=== PATIENT | female | born 1950 | race Caucasian/White ===

== ENCOUNTER 2016-11-02 12:52 | Inpatient (IN) | payer MEDICARE, OTHER ==
[~2016-11-02] VITALS: Ht 167.6 cm; Wt 54.6 kg
--- NOTE | ~2016-11-02 | ECH ---
Transthoracic Echocardiography Report (TTE) Demographics Patient Name LUIS FISHER Date of Study 11/02/2016 Patient Number [id number] Visit Number [id number] Date of 1950 Room Number Accession Number [id number] Gender Female Age 65 year(s) Referring [facility] Office Coordinator Chelsea Brown [facility] Physician MD Josefina Neal MD Physician Interpreting [facility] R Beater Room Helper Physician MD Supervising Ordering Physician Josefina Neal MD, MD/[facility] Nurse Stress Software Specialist Conclusions Summary Technically adequate exam. The estimated left ventricular ejection fraction is 60%. Mild concentric left ventricular hypertrophy. There is severe/critical aortic stenosis by the Continuity Equation. The peak velocity is 6.1 m/s, the mean gradient is 86 mmHg, and the valve area based on the continuity equation is 0.4 cm2, stroke volume index is 38 ml/m2. Peak velocity obtained in apical view. The aortic valve was not well visualized. There is trivial aortic regurgitation by color Doppler. Mild tricuspid regurgitation by color Doppler. There is moderate pulmonary hypertension. The pulmonary pressure (RVSP) is 54 mmHg. The ascending aorta appears mildly dilated. The maximum diameter measures 3.4 cm. Procedure Type of Study TTE procedure:Echo Complete SF. Procedure Date Date: 11/02/2016 Start: 04:41 PM Technical Quality: Adequate visualization Indications:Atrial Fibrillation w/ RVR and Chest pain. Appropriate Use Criteria: 9 Height: 66 inches Weight: 120 pounds BSA: 1.61 m Rhythm: NSR HR: 68 bpm BP: 100/57 mmHg M-Mode/2D Measurements LV Diastolic Dimension: 4.36 cm LV Systolic Dimension: 3.31 cm LV Septum Diastolic: 1.21 cm LV PW Diastolic: 1.1 cm AO Root Dimension: 3.19 cm Cardiac Output: 4.13 l/min LA Dimension: 3.08 cm Cardiac Index: 2.57 l/min*m RV Diastolic Dimension: 2.9 cm LA volume index: 34 ml/m LVOT: 1.91 cm LVOT VTI: 21.19 cm RV Base: 2.7 cm LV Stroke volume: 60.68 ml RV Mid: 1.7 cm LV Stroke volume index: 37.69 ml/m TAPSE: 2.5 cm TDI-S': 12 cm/s Doppler Measurements AV Peak Velocity: 6.1 m/s MV Peak E-Wave: 1.7 m/s AV Peak Gradient: 148.84 mmHg MV Peak A-Wave: 0.92 m/s AV Mean Gradient: 86.19 mmHg MV E/A Ratio: 1.85 LVOT Peak Velocity: 0.83 m/s MV P1/2t: 51.7 msec AV Area (Continuity):0.43 cm AV P1/2t: 288.4 msec TR Velocity:3.32 m/s MV Deceleration Time: 182.3 msec TR Gradient:44.09 mmHg MV Area (PHT): 4.26 cm Estimated RAP:10 mmHg PV Peak Velocity: 0.85 m/s Estimated RVSP: 54 mmHg PV Peak Gradient: 2.9 mmHg E' Septal Velocity: 0.07 m/s Estimated PASP: 54.09 mmHg E' Lateral Velocity: 0.06 m/s A' Septal Velocity: 0.06 m/s A' Lateral Velocity: 0.05 m/s RA Area: 10.33 cm Findings Left Ventricle The left ventricle is normal in size . Mild concentric left ventricular hypertrophy. Diastolic assessment reveals normal relaxation. Right Ventricle Normal right ventricle structure and function. Left Atrium Normal left atrial size. Right Atrium Normal right atrial size. Mitral Valve Moderate mitral annular calcification. Mild mitral regurgitation by color Doppler. Aortic Valve The aortic valve was not well imaged. There is severe aortic stenosis by the Continuity Equation. The peak velocity is 6.1 m/s, the mean gradient is 86 mmHg, and the valve area based on the continuity equation is 0.4 cm2, stroke volume index is 38 ml/m2. Peak velocity obtained in apical view. There is mild to moderate aortic regurgitation by color Doppler. Tricuspid Valve Normal tricuspid valve structure and function. Mild tricuspid regurgitation by color Doppler. There is moderate pulmonary hypertension. The pulmonary pressure (RVSP) is 54 mmHg. Pulmonic Valve The pulmonic valve is not well visualized. Pericardial Effusion No evidence of pericardial effusion. Miscellaneous The ascending aorta appears mildly dilated. The maximum diameter measures 3.4 cm. Pleural Effusion No evidence of pleural effusion. Contractility Score LV regional wall motion:(0-Non visualized 1-Normal 2-Hypokinesis 3-Akinesis 4-Dyskinesis 5-Aneurysm) Signature
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
--- NOTE | 2016-11-04 12:16 | DS ---
ADMIT: 11/02/2016 RM/LOC: 403 [facility] MR#: [id number] [address] [place], [place] [address] LUIS FISHER [address] [place] [address] Discharge Summary SEX: F AGE: 65 : 1950 ADMISSION DATE: 11/02/2016 DISCHARGE DATE: 11/03/2016 ATTENDING AT TIME OF DISCHARGE: Yasir Rocha MD CONSULTATIONS: 1. Cardiology. 2. General Surgery. FINAL DIAGNOSES: 1. A fib (atrial fibrillation) with RVR (rapid ventricular response), now normal sinus rhythm. 2. Bds-UV-eecotov elevated myocardial infarction. 3. Critical aortic stenosis. 4. Acute blood loss anemia. 5. Presumed gastrointestinal blood loss. PROCEDURES: None. REASON FOR ADMISSION: Please see H and P; however, Luis is a 65-year-old female who was severely short of breath, transferred to the ER noted to have atrial fibrillation with RVR. HOSPITAL COURSE: She was admitted the service of [facility] under the care of myself, Yasir Rocha MD. She did convert to normal sinus rhythm while in the ER. Upon identification of her critical aortic stenosis, there has been further contact with the [facility]. They will evaluate the patient in [place] to consider a balloon valvuloplasty acutely. She does have a trending of her troponins down today, it is at 5. She did receive Lovenox last night. Hemoglobin is 10.8 today. Yesterday it was 12. In September it was 16 in my office. She states she thinks she has dark-colored stools. However, it is really unclear if she actually has a gastrointestinal bleed at this time. There is certainly no shade bleeding from her rectum or otherwise from other sources such as hemoptysis, hematochezia or anything of that nature. However, she is hemodynamically stable at this time. She will transferred to [facility]. I did speak with Cardiology. They do have capability to intervene upon the patient if she does need further endoscopy or evaluation there in [place], and they are aware of these concerns as well. DISPOSITION: [facility]. DISCHARGE CONDITION: Stable. ADMIT: 11/02/2016 RM/LOC: 403 [facility] MR#: [id number] [address] [address] LUIS FISHER [address] [place] [address] Discharge Summary SEX: F AGE: 65 : 1950 DISCHARGE MEDICATIONS: See medication reconciliation, reviewed and accurate. DISCHARGE INSTRUCTIONS: Discharged to the [facility] to be evaluated for a balloon valvuloplasty and further aortic valve interventions. They will monitor her other laboratories including hemoglobin and continue care for her COPD. I discussed this plan with Luis. She expressed understanding, was in agreement, and had no further questions. Family is also at the bedside. Thirty minutes spent on discharge activities with this patient. Yasir Rocha MD/ mela JOB #: [id number] CC: Yasir Rocha MD, Attending Physician Yasir Rocha MD, Family Physician
--- NOTE | 2016-11-09 17:29 | CO ---
ADMIT: 11/02/2016 RM/LOC: 403 [facility] MR#: [id number] [address] [place], [place] [address] LUIS FISHER [address] [place] [address] Consultation SEX: F AGE: 65 : 1950 DATE OF CONSULTATION: 11/02/2016 ATTENDING PHYSICIAN: Yasir Rocha CONSULTING PHYSICIAN: Jose Rose MD REASON FOR CONSULTATION: Atrial fibrillation with rapid ventricular response. HISTORY OF PRESENT ILLNESS: The patient is a pleasant 65-year-old female with no known history of coronary artery disease. She is here with a 2- months history of shortness of breath with exertion and with rest. Today, her legs became weak, and she had pain in her left arm and therefore, she was brought into the emergency room by her family. She was found to be in atrial fibrillation with rapid ventricular response. She does not have any heart history of arrhythmias. She denies any significant lower extremity edema, orthopnea, PND, or syncope. She does not have any palpitations. She states she does have some chest heaviness with her shortness of breath and COPD. She had two episodes of diaphoresis with presyncope upon exertion within the last couple of weeks. PAST MEDICAL HISTORY: COPD; hypertension; hyperlipidemia; tobacco abuse, ongoing; GERD. PAST SURGICAL HISTORY: Status post cholecystectomy. REVIEW OF SYSTEMS: GENERAL: Denies fatigue, fever, chills, sweats, or rash. She has had weight loss, 10-15 pounds in approximately 1 year. EYES: Denies double vision, blurred vision, cataracts, or glaucoma. She wears corrective lenses. ENT: Denies hearing loss or problems with nose, mouth or throat. PULMONARY: Denies sputum production, asthma, emphysema or bronchitis. Denies snoring loudly, wakefulness at night, or fatigue upon awakening. She has a cough which is nonproductive. She does have COPD, does not wear any oxygen, does not gave a diagnosis of sleep apnea. GASTROINTESTINAL: Denies heartburn or difficulty swallowing. No change in bowel habits. Denies dark or bloody stools. No history of ulcers, hiatal hernia, or gallbladder or liver disease. She is status post cholecystectomy and has GERD. GENITOURINARY: Denies dysuria, hematuria, nocturia, urinary tract infection, or kidney stones. Denies history of renal insufficiency or failure. MUSCULOSKELETAL: Denies history of arthritis or gout. Denies muscle or joint pains. ENDOCRINE: Denies history of thyroid dysfunction or diabetes. HEMATOLOGIC: Denies history of anemia, easy bruising, or cancer. NEUROLOGIC: Denies chronic headaches, dizziness, syncope, stroke, seizures or numbness or tingling. PSYCHIATRIC: Denies history of mental illness or feelings of depression. SOCIAL HISTORY: She is . She has 2 children. 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 She does not follow special diet at home. She drinks 4-5 beers a day. 4-5 times a week. She smokes a pack a day. FAMILY HISTORY: Positive for coronary artery disease. Dad of a massive myocardial infarction, sudden cardiac in his 70s. Mom had congestive heart failure which was not her cause of . She also has a brother who had CABG at age 64. MEDICATIONS: Include: 1. Amlodipine. 2. Crestor. PHYSICAL EXAMINATION: Per Dr. Rose: VITAL SIGNS: Heart rate anywhere from the 60s to 170s, O2 saturation of 95%, blood pressure is 118/60, O2 saturation without any oxygen is in the 90s. GENERAL: Thin alert. SKIN: [place], warm and dry. EYES: Sclerae clear. No xanthelasmas. ENT: Oral mucosa is pink and moist. No jugular venous distention or carotid bruits. CHEST: Respirations are even and unlabored. Lungs poor air movement. Positive wheezes. HEART: Grade 3 systolic murmur. ABDOMEN: Soft and nontender. MUSCULOSKELETAL: Gait is normal. EXTREMITIES: Peripheral pulses palpable. No clubbing, cyanosis or edema. PSYCHIATRIC: Alert and oriented. Mood and affect are appropriate. DIAGNOSTICS: White blood count of 10.3 with red blood count 3.65, hemoglobin 12.7, hematocrit of 35.6 with platelet count of 336. Sodium of 126, potassium 3.6, chloride 91, carbon dioxide 23, BUN of 6, glucose of 110, creatinine 0.6, calcium 8.6, magnesium of 1.7. Ethanol level of 15. Troponin of 0.167. TSH of 1.290. ASSESSMENT: 1. Newly-diagnosed atrial fibrillation. 2. Chronic obstructive pulmonary disease with exacerbation. 3. Alcohol abuse. 4. Tobacco abuse. 5. Anemia. 6. Mildly-elevated troponin. PLAN: Per Dr. Rose, she has newly-diagnosed paroxysmal atrial fibrillation. She converted while in the ER after being put on a Cardizem drip and given IV digoxin. She has multiple risk factors for atrial fibrillation. I would like her to have an echocardiogram to assess her left ventricular function and to assess for any valvular abnormalities. Her TSH has already ADMIT: 11/02/2016 RM/LOC: 403 [facility] MR#: [id number] [facility] [address] LUIS FISHER [address] [place] [address] Consultation SEX: F AGE: 65 : 1950 been checked and is okay. I would recommend starting low-dose Cardizem. If she has ongoing episodes, we will consider an antiarrhythmic. I would favor anticoagulation if okay with her primary. Right now, there is suspicion for a GI bleed as hemoglobin has dropped from 16 in the office down to 12 upon visit today and she does states she has had some dark stools to some of the nurses. If there is no evidence of bleeding, then we will proceed with anticoagulation. Her increased troponin is nonspecific. We will continue to trend this out. We will continue to monitor symptoms and diagnostics. Amend our plan accordingly. Thank you for allowing us to participate in the care of this patient. EDIT: 11/05/2016 1034 [address] EMILY Murray / Jose Rose MD / nasir JOB #: [id number] CC: Yasir Rocha, Attending Physician Yasir Rocha, Family Physician
--- NOTE | 2016-11-19 08:53 | CO ---
ADMIT: 11/02/2016 RM/LOC: 403 [facility] MR#: [id number] [address] [place], [place] [address] LUIS FISHER [address] [place] [address] Consultation SEX: F AGE: 65 : 1950 DATE OF CONSULTATION: 11/03/2016 ATTENDING PHYSICIAN: Yasir Rocha CONSULTING PHYSICIAN: Merlin Hunt MD HISTORY OF PRESENT ILLNESS: The patient is a 65-year-old female, who is admitted to the emergency room yesterday due to increase issues over last several months of shortness of breath with exertion and at rest. She has gotten weaker, legs have become weak, she has had pain in her left arm. She admits to a poor appetite, and she does drink alcohol heavily per report. Denies nausea or vomiting. Denies any abdominal pain. Denies melena or hematochezia. No bowel function changes. Although, her workup revealed some anemia and more significantly atrial fibrillation with a rapid ventricular response. She was admitted for rate control. Cardiology was consulted. She ended up with an echocardiogram, which revealed severe aortic stenosis. After my visiting with her this morning, I visited with Dr. Irizarry, who said she is being transferred due to the severity of her severe aortic stenosis. PAST MEDICAL HISTORY: Includes: 1. Hypertension. 2. Hyperlipidemia. 3. COPD. 4. Alcohol and tobacco abuse, now has a severe aortic stenosis. MEDICATIONS: Include: 1. Crestor. 2. Amlodipine. ALLERGIES: SHE HAS NO ALLERGIES. FAMILY HISTORY: Family history of substance abuse. SOCIAL HISTORY: She is a heavy drinker heavy smoker. REVIEW OF SYSTEMS: Denies headaches, and she has had the shortness of breath, fatigue, decreased appetite. She did state she had a colonoscopy a couple years ago that was unremarkable. Denies any melena or dysphagia. No neurologic or psychiatric issues. PHYSICAL EXAMINATION: GENERAL: She is afebrile. ADMIT: 11/02/2016 RM/LOC: 403 [facility] MR#: [id number] [address] [address] LUIS FISHER [address] [place] [address] Consultation SEX: F AGE: 65 : 1950 VITAL SIGNS: Stable. HEART: Has a murmur. Heart is regular. LUNGS: Decreased breath sounds bilaterally. ABDOMEN: Soft, nondistended, and nontender. ASSESSMENT AND PLAN: The patient is a 65-year-old with mild anemia of unknown origin with no clinical evidence of gastrointestinal blood loss, who now is found to have a severe critical aortic stenosis. PLAN: At this point in time, it is to hold off on any type of endoscopic workup until she is going to be transferred to have her critical aortic stenosis likely handled surgically. Merlin Hunt MD/ nasir JOB #: [id number] CC: Yasir Rocha, Attending Physician Yasir Rocha, Family Physician
[2016-12-13] MEDS ORDERED: PROAIR RESPICL90 MCG IH (10:11)
[2016-12-13] MEDS ORDERED: ASA CHILDREN'S81 MG PO (10:11)
[2016-12-13] MEDS ORDERED: ADVAIR DIS1 PUFF/DO1 IH (10:12)
[2016-12-13] MEDS ORDERED: PLAVIX75 MG PO (10:12)
[2016-12-13] MEDS ORDERED: PROTONIX40 MG PO (10:13)
[2016-12-13] MEDS ORDERED: VIBRAMYCIN-DPS100 M2 PO (10:13)
[2016-12-13] MEDS ORDERED: CRESTOR10 MG PO (10:13)
[2016-12-13] MEDS ORDERED: LOPRESSOR DPS12.5 MG PO (10:13)
[2016-12-13] MEDS ORDERED: LASIX DPS40 MG PO (10:14)
[2016-12-13] MEDS ORDERED: CARAFATE DPS1 GM PO (10:14)
[2016-12-13] MEDS ORDERED: SPIRIVA18 MCG IH (10:14)
[2016-12-13] MEDS ORDERED: TYLENOL DPS325 MG PO (10:14)
[2016-12-13] MEDS ORDERED: FEOSOL-DPS325 MG PO (10:14)
[2016-12-13] MEDS ORDERED: DELTASONE DPS1 MG PO (10:15)
--- NOTE | 2016-12-15 21:36 | ER ---
ADMIT: 11/02/2016 RM/LOC: 403 [facility] MR#: [id number] [address] [place], [place] [address] LUIS FISHER [address] [place] [address] Emergency Room Report SEX: F AGE: 65 : 1950 DATE: 11/02/2016 HISTORY OF PRESENT ILLNESS: A 66-year-old female comes to the Emergency Department with complaints of chest pain and discomfort. She awoke with shortness of breath and these complaints. It is moderate in nature. Also was accompanied with palpitations, there is weakness, and shortness of breath associated with it. She has not had symptoms like this before. REVIEW OF SYSTEMS: Essentially negative. PAST MEDICAL HISTORY: Significant for hypertension, irregular heartbeat, as she does smoke and drink alcohol heavily. PHYSICAL EXAM: GENERAL: A 66-year-old female, in no acute distress. LUNGS: Clear. CARDIOVASCULAR: Irregular rate, irregular rhythm. ABDOMEN: Soft, nontender, positive bowel sounds. EXTREMITIES: Without clubbing, cyanosis, or edema. 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 ASSESSMENT AND PLAN: Cardiac workup was initiated. Chest x-ray showed no acute findings. Initial EKG was significant for atrial fibrillation with rapid ventricular response. Her initial cardiac markers revealed an MB of 18, total CK 177. Cardiac index; relative index of 10.2, initial troponin was 0.167. The patient was admitted with a chest pain, atrial fibrillation, and RVR. Stanford Tang MD/ nasir JOB #: [id number] CC: Yasir Rocha MD, Attending Physician Yasir Rocha MD, Family Physician
== END 2016-11-03 12:50 | disposition short-term general hospital (02) | DRG 281 ==
LOC: ER 12:52 → 4PCU 14:53 → ER 14:53 → 4PCU 11-03 12:50
PROVIDERS: ADMIT Internal Medicine
PROC: HZ2ZZZZ Detoxification Services for Substance Abuse Treatment (ICD-10-PCS; principal; 2016-11-02)
DX: I21.4 Non-ST elevation (NSTEMI) myocardial infarction (principal); I48.0 Paroxysmal atrial fibrillation; I35.0 Nonrheumatic aortic (valve) stenosis; D62 Acute posthemorrhagic anemia; E87.1 Hypo-osmolality and hyponatremia; K92.2 Gastrointestinal hemorrhage, unspecified; J44.1 Chronic obstructive pulmonary disease with (acute) exacerbation; K21.9 Gastro-esophageal reflux disease without esophagitis; F10.10 Alcohol abuse, uncomplicated; I10 Essential (primary) hypertension; E78.5 Hyperlipidemia, unspecified; E87.6 Hypokalemia; E83.42 Hypomagnesemia; F17.210 Nicotine dependence, cigarettes, uncomplicated; Z66 Do not resuscitate

== ENCOUNTER 2016-12-08 19:04 | Inpatient (IN) | payer MEDICARE ==
[~2016-12-08] VITALS: Ht 167.6 cm; Wt 53.3 kg
--- NOTE | 2016-12-09 19:03 | ER ---
ADMIT: 12/08/2016 RM/LOC: 316 [facility] MR#: [id number] [address] [place], [place] [address] LUIS FISHER [address] [place] [address] Emergency Room Report SEX: F AGE: 66 : 1950 DATE: 12/08/2016 CHIEF COMPLAINT: Shortness of breath. HISTORY OF PRESENT ILLNESS: The patient is a 66-year-old female with COPD, chronic AFib; coronary artery disease; congenital bicuspid aortic valve, recent balloon valvuloplasty at [facility], discharged on November 24, 2016. States she is increasingly short of breath, lightheaded. Denies any chest pain, fevers, chills, or productive cough. Does admit to black stools lately. Smoking up to 5 cigarettes a day now that she feels so good since she had her balloon valvuloplasty. PAST MEDICAL HISTORY: ALLERGIES: NONE. MEDICATIONS: Please see nurse's MAR. ILLNESSES: Coronary artery disease, chronic AFib, CHF, bicuspid aortic valve, recent valvuloplasty, hypertension, COPD, hyperlipidemia, GERD, anemia, previous GI bleed, peripheral vascular disease, carotid occlusive disease of 60% to 79% of right. OPERATIONS: Cholecystectomy, pending aortic valve replacement, and PCI x2 recently. SOCIAL HISTORY: Smokes less than a quarter pack per day. No illicit drugs. Occasional alcoholic beverage, beer today. FAMILY HISTORY: Negative per chart review. REVIEW OF SYSTEMS: A 12-point review of systems negative for all other systems, illnesses, or operations except as outlined above. PHYSICAL EXAMINATION: VITAL SIGNS: Temp 97, pulse 99, respirations 18, BP 122/57, and SaO2 of 97% on room air. GENERAL: Anxious, pale, non-diaphoretic without jaundice or icterus. HEENT: Normocephalic. No evidence of epistaxis, rhinorrhea, or otorrhea. NECK: Supple without lymphadenopathy or thyromegaly. CHEST: Breath sounds are equal and diminished with faint expiratory forced wheeze. HEART: Regular rate, occasionally tachycardic without murmur, gallop, or edema. ABDOMEN: Soft, nontender, nondistended without mass or megaly. Bowel sounds hypoactive. RECTAL: Sphincter intact. Hematest positive for black stool. EXTREMITIES: No evidence of Homans sign, synovitis, or dermatitis. ABIs greater than 1. NEURO: EOMI, PERRLA. No evidence of drift, dysarthria, or ataxia. Gait not ADMIT: 12/08/2016 RM/LOC: 316 [facility] MR#: [id number] [address] [address] [place] [address] Emergency Room Report SEX: F AGE: 66 : 1950 assessed. MENTAL STATUS: Alert, oriented, and anxious without delusions, hallucinations, or abnormal thought content. MEDICAL DECISION MAKING: EKG shows sinus rhythm, rate of 97 with repolarization changes diffusely. No significant change from 11/03/2016. Chest x-ray shows hyperinflation. WBC 11.1 and hemoglobin 6.6 down from 10.8 on November 03. CRP less than 0.29. Lactic 1.9. Glucose 129 and sodium 123. Troponin 0.197. D-dimer is 0.58. BNP 4503. Magnesium 1.9. 2 blood cultures pending. The patient was given Zofran, Protonix bolus and drip at 8 mg/hour, 2 DuoNebs, Solu-Medrol 125 mg IV push, magnesium 2 g IV piggyback with improvement in shortness of breath. The patient was transfused with 1 unit of packed cells in the emergency department. Discussed findings and disposition with Dr. Godoy, who agreed to admit to ICU and requested ICU to call for orders. Notified Dr. Hunt of GI bleed in-house. Due to the patient's presentation, findings, and intervention, 30 minutes of critical care is warranted. DIAGNOSES: 1. Gastrointestinal bleed, associated transient hypotension. 2. Chronic obstructive pulmonary disease. 3. Coronary artery disease, status post recent PCI stent x2. 4. Congenital aortic valve, recent aortic valvuloplasty. RECOMMENDATION: Admit inpatient ICU for Dr. Rocha. Admission discharge condition is stable. The patient is a DNR. Idris Kuo MD/ nasir JOB #: [id number] CC: Yasir Rocha MD, Attending Physician Yasir Rocha MD, Family Physician MD Merlin Villegas MD
--- NOTE | 2016-12-12 14:08 | CO ---
ADMIT: 12/08/2016 RM/LOC: 316 [facility] MR#: [id number] [address] [place], [place] [address] LU[address]ER [address] [place] [address] Consultation SEX: F AGE: 66 : 1950 DATE OF CONSULTATION: 12/09/2016 ATTENDING PHYSICIAN: Yasir Rocha CONSULTING PHYSICIAN: Roberth Busyb MD CHIEF COMPLAINT: GI bleed. HISTORY OF THE PRESENT ILLNESS: The patient is a 66-year-old female, who was recently treated by us in October when she was discovered to be in atrial fibrillation with rapid ventricular response. Since that time, she is noted to have aortic stenosis and coronary artery disease. As part of the treatment for her aortic stenosis, she underwent a balloon aortic valvuloplasty in October which lowered her mean gradients. She then underwent a PCI to the LAD with a stent. Since that time, she has been on anti-platelet agents and anticoagulants. She noticed in the last couple of days that she felt more short of breath and fatigued. Because of that, she had presented to the emergency room and was noted to have a hemoglobin of 6.6. We are now seeing her for further evaluation. She is currently off her anticoagulants and anti- platelet agents. In speaking with her today, she states that she does not feel quite short of breath. She has no new chest pain or chest tightness. She has her baseline shortness of breath but nothing that has worsened. She had no other complaints. PAST MEDICAL HISTORY: Significant for: 1. Atrial fibrillation. 2. Balloon aortic valvuloplasty. 3. Stenting of the LAD. 4. COPD. 5. Hypertension. 6. Hyperlipidemia. 7. History of tobacco abuse. 8. History of alcohol use. 9. Reflux. 10.History of cholecystectomy. ALLERGIES: NONE. CURRENT HOME MEDICATIONS: 1. Albuterol inhaler every 6 hours as needed. 2. Clopidogrel 75 mg daily. 3. Aspirin 81 mg daily. 4. Advair Diskus 1 puff twice daily. 5. Metoprolol tartrate 12.5 mg b.i.d. 6. Multivitamin daily. 7. Pantoprazole 40 mg daily. 8. Rosuvastatin 10 mg daily. 9. Spiriva inhalation daily. ADMIT: 12/08/2016 RM/LOC: 316 [facility] MR#: [id number] [facility] [address] [address] [place] [address] Consultation SEX: F AGE: 66 : 1950 FAMILY HISTORY: Significant for father who had a myocardial infarction and sudden cardiac . Her mother had heart failure and a brother who had bypass surgery. SOCIAL HISTORY: The patient has a history of alcohol use and smoking. REVIEW OF SYSTEMS: GENERAL: Denies fever, chills, sweats, rash, or weight loss. She has had recent fatigue. EYES: Denies double vision, blurred vision, cataracts, or glaucoma. ENT: Denies hearing loss or problems with nose, mouth or throat. PULMONARY: Denies cough, sputum production, asthma, emphysema or bronchitis. Denies snoring loudly, wakefulness at night, or fatigue upon awakening. GASTROINTESTINAL: Denies heartburn or difficulty swallowing. No change in bowel habits. Denies dark or bloody stools. No history of ulcers, hiatal hernia, or gallbladder or liver disease. GENITOURINARY: Denies dysuria, hematuria, nocturia, urinary tract infection, or kidney stones. Denies history of renal insufficiency or failure. MUSCULOSKELETAL: Denies history of arthritis or gout. Denies muscle or joint pains. ENDOCRINE: Denies history of thyroid dysfunction or diabetes. HEMATOLOGIC: Denies history of anemia, easy bruising, or cancer. NEUROLOGIC: Denies chronic headaches, dizziness, syncope, stroke, seizures or numbness or tingling. PSYCHIATRIC: Denies history of mental illness or feelings of depression. She does have some shortness of breath. She has some occasional chest pain. she has had no other complaints. PHYSICAL EXAMINATION: VITAL SIGNS: Blood pressure is 115/57, heart rate 93, respirations 20, temperature 96.9 degrees Fahrenheit. SKIN: Dennis, warm and dry. EYES: Sclerae clear. No xanthelasmas. ENT: Oral mucosa is pink and moist. No jugular venous distention or carotid bruits. CHEST: Lungs have diminished breath sounds throughout. HEART: Regular rate and rhythm. Normal S1, S2. No rubs or gallops. A 3/6 systolic ejection murmur. ABDOMEN: Soft and nontender. MUSCULOSKELETAL: Gait is normal. EXTREMITIES: Peripheral pulses palpable. No clubbing, cyanosis or edema. PSYCHIATRIC: Alert and oriented. Mood and affect are appropriate. ASSESSMENT: 1. Gastrointestinal bleed. 2. Aortic stenosis. 3. Coronary artery disease. 4. Atrial fibrillation. 5. Hypertension. 6. Hyperlipidemia. ADMIT: 12/08/2016 RM/LOC: 316 [facility] MR#: [id number] [address] [place] [id number] [place] [address] Consultation SEX: F AGE: 66 : 1950 7. History of smoking. 8. History of alcohol use. PLAN: Currently the patient is in sinus rhythm. She does appear to have a GI bleeding. For this reason, we will need to keep her off anti-platelet agents and anticoagulants until a diagnosis can be made. Hopefully something can be treated so that we can get her back on those agents as she does have a fairly recent stent placement approximately 1 month ago. She is also in need of long- term treatment for her aortic valve with likely a TAVR. At the moment, her blood pressure is stable, we will continue with the risk factor treatment. I believe that her elevated troponin is probably a demand ischemia from her anemia rather than supply ischemia or new myocardial infarction. Roberth Busby MD/ nasir JOB #: [id number] CC: Yasir Rocha, Attending Physician Yasir Rocha, Family Physician
[2016-12-13] MEDS ORDERED: PROAIR RESPICL90 MCG IH (10:11)
[2016-12-13] MEDS ORDERED: ASA CHILDREN'S81 MG PO (10:11)
[2016-12-13] MEDS ORDERED: ADVAIR DIS1 PUFF/DO1 IH (10:12)
[2016-12-13] MEDS ORDERED: PLAVIX75 MG PO (10:12)
[2016-12-13] MEDS ORDERED: PROTONIX40 MG PO (10:13)
[2016-12-13] MEDS ORDERED: LOPRESSOR DPS12.5 MG PO (10:13)
[2016-12-13] MEDS ORDERED: VIBRAMYCIN-DPS100 M2 PO (10:13)
[2016-12-13] MEDS ORDERED: CRESTOR10 MG PO (10:13)
[2016-12-13] MEDS ORDERED: TYLENOL DPS325 MG PO (10:14)
[2016-12-13] MEDS ORDERED: FEOSOL-DPS325 MG PO (10:14)
[2016-12-13] MEDS ORDERED: LASIX DPS40 MG PO (10:14)
[2016-12-13] MEDS ORDERED: CARAFATE DPS1 GM PO (10:14)
[2016-12-13] MEDS ORDERED: SPIRIVA18 MCG IH (10:14)
[2016-12-13] MEDS ORDERED: DELTASONE DPS1 MG PO (10:15)
--- NOTE | 2016-12-14 17:36 | HP ---
ADMIT: 12/08/2016 RM/LOC: 316 [facility] MR#: [id number] [address] [place], [place] [address] LUIS OSORIO [address] [place] [address] History and Physical SEX: F AGE: 66 : 1950 DATE OF SERVICE: 12/08/2016 CHIEF COMPLAINT: Shortness of breath. HISTORY OF PRESENT ILLNESS: Ms. Osorio is a very pleasant 66-year-old female with past medical history significant for COPD, recent valvuloplasty about 3 weeks ago for bicuspid aortic valve and severe aortic stenosis, CAD with recent LAD stent,possible GI bleed, possible history of paroxysmal atrial fibrillation, presents to the emergency room today with 2 days of shortness of breath. The patient is s/p valvuloplasty and stent about 3 weeks ago, which she had completed in [place]. The patient discharged home, apparently was rehabilitating very well, and in about 2 days ago began feeling increasing shortness of breath and weakness. The patient denied any palpitations or chest pain. The patient did experience some tingling in her legs bilaterally, started in her feet and radiated up and seemed to have restless legs especially in the evening. The patient decided to come to the emergency room today to be evaluated. The patient denies any recent chest pain. The patient did have some recent exertional intolerance, now only able to walk about half a block before stopping for shortness of breath. The patient denies any bright red blood per rectum. The patient is unable to tell me if she has had any black or tarry stools as she does not typically pay lot of attention. Denies any blood in her urine. No abdominal pain. No nausea or vomiting. Otherwise, no changes in bowel habits. Overall other than the fatigue and shortness of breath, the patient is currently resting comfortably in bed and really has no other complaints other than she feels slightly hungry. REVIEW OF SYSTEMS: Negative except for what was mentioned in the HPI. MEDICATIONS: See MAR PAST MEDICAL HISTORY: COPD, history of aortic stenosis status post valvuloplasty, history of paroxysmal atrial fibrillation?, history of hypertension, hyperlipidemia, tobacco abuse, GERD, and possible history of acute GI bleed. PAST SURGICAL HISTORY: The patient is status post cholecystectomy around 30 years ago. FAMILY HISTORY: Denies history of early heart disease or cancer, otherwise noncontributory. SOCIAL HISTORY: Continues to smoke tobacco anywhere from half a pack to 5 cigarettes per day. Continues to drink alcohol on a daily basis around 2 drinks per day. No history of withdrawal symptoms. PHYSICAL EXAMINATION: VITAL SIGNS: Blood pressure 107/64, pulse 73, respirations 18, temperature 96.1, and saturating 93% on room air. GENERAL: The patient is in no distress, resting in bed, sitting upright comfortably. HEAD, EARS, EYES, NOSE, AND THROAT: Normocephalic and atraumatic. Pupils are ADMIT: 12/08/2016 RM/LOC: 316 [facility] MR#: [id number] [facility] [address] [address] [place] [address] History and Physical SEX: F AGE: 66 : 1950 equal and reactive to light and accommodation. Extraocular movements are intact. No cervical adenopathy. Oropharynx is normal. LUNGS: The patient is clear to auscultate bilaterally without crackles or wheezes. No increased work of breathing. CARDIOVASCULAR: Regular rate and rhythm. No murmurs or heaves. Dorsalis pedis and posterior tibial pulses 2+. ABDOMEN: Soft, nontender, nondistended. Active bowel sounds. Negative Spencer sign. EXTREMITIES: Atraumatic. No lower extremity edema. SKIN: No rashes or lesions. NEUROLOGIC: Grossly normal. PSYCHIATRIC: Pleasant and appropriate affect. LABORATORY DATA: CBC with WBC 11.1, hemoglobin 6.6, and platelets 277. Normal MCV. CMP with sodium 123, potassium 3.7, chloride 91, carbon dioxide 20, BUN 10, glucose 129, creatinine 0.5, calcium 8.7, total bilirubin 0.5. Normal LFTs. Lipase 115 and normal. D-dimer slightly elevated at 0.58. Lactic acid normal at 1.9. Occult blood positive. IMAGING: Chest x-ray with stable appearance of the chest compared to prior study dated 11/02/2016, without acute cardiopulmonary process identified. ASSESSMENT AND PLAN: This is a 66-year-old female with chronic obstructive pulmonary disease and recent valvuloplasty, presents for shortness of breath, and found to be anemic. 1. Acute gastrointestinal bleed. Currently on IV fluids. We will continue Protonix b.i.d. She has been typed and crossed. We will transfuse 1 unit, check H and H afterwards and also in the morning and also p.r.n. if the patient becomes tachycardiac or hypotensive. N.p.o. at midnight. Surgery has been made aware of the patient. Possible upper endoscopy tomorrow if they are willing. We will obtain records from [facility] as it is possible that the patient has had recent upper endoscopy during last hospitalization. 2. Hyponatremia. Sodium 123 on presentation. I do not believe this is contributing to the patient's clinical symptoms at this moment, but we will go easy on IV fluids and recheck BNP when checking H and H to make sure not correcting too quickly suspect hyponatremia. It is partly secondary to recent alcohol use and possible slight hypovolemia given GI bleed. 3. Chronic obstructive pulmonary disease. Home meds, DuoNeb. Overall respiratory status is stable. 4. Aortic stenosis status post valvuloplasty. The patient is on aspirin and Plavix, did receive these this morning. We will hold and make decision depending on status of hemoglobin in the morning whether to give this as a morning medication or not. 5. History of paroxysmal atrial fibrillation, currently normal sinus rhythm. 6. Hypertension. Holding home antihypertensives given GI bleed. 7. CAD. Recent LAD stent. Resuming ASA but holding plavix. ADMIT: 12/08/2016 RM/LOC: 316 [facility] MR#: [id number] 26[address] [facility] [address] [place], [place] [address] LUIS OSORIO [address] [place] [address] History and Physical SEX: F AGE: 66 : 1950 8. Hyperlipidemia. We will continue home statin. 9. Tobacco abuse. Nicotine patch ordered. 10. Alcohol abuse. No history of alcohol withdrawal in the past. We will monitor, start WASP protocol if necessary. 11.Gastroesophageal reflux disease. IV PPI ordered. 12.Deep venous thrombosis prophylaxis. Currently, being held given GI bleed. 13.Diet. N.p.o. at midnight for possible endoscopy. 14.Disposition. Likely 2 or 3 days pending hospital course. This is Shashi Caraballo at [phone]. Please give me a call with any questions or concerns. Shashi Caraballo MD Resident / Dayday Godoy MD / nasir JOB #: [id number] CC: Yasir Rocha, Attending Physician Yasir Rocha, Family Physician
--- NOTE | 2016-12-21 10:23 | CO ---
ADMIT: 12/08/2016 RM/LOC: 316 [facility] MR#: [id number] [address] [facility] [address] [place] [address] LU[address] [place] [address] Consultation Report SEX: F AGE: 66 : 1950 Corrected: 12/10/2016 0511 njv DATE OF CONSULTATION: 12/09/2016 ATTENDING PHYSICIAN: Yasir Rocha CONSULTING PHYSICIAN: Merlin Hunt MD HISTORY OF PRESENT ILLNESS: The patient is a 66-year-old female, who presented with shortness of breath and weakness, has past medical history of COPD and had a recent valvuloplasty 3 weeks ago for bicuspid aortic valve and severe aortic stenosis. She came in for evaluation due to her shortness of breath and weakness and was found to be anemic at 6.6. She denies any abdominal pain or dysphagia. Denies nausea or vomiting. Denies melena or hematochezia. Mentions had a normal colonoscopy about 3 years ago. PAST MEDICAL HISTORY: Includes aortic stenosis, COPD, recent valvuloplasty, history of hypertension, hyperlipidemia, and reflux disease. PAST SURGICAL HISTORY: Includes cholecystectomy. FAMILY HISTORY: Otherwise unremarkable. SOCIAL HISTORY: She smokes, alcohol user daily. REVIEW OF SYSTEMS: Denies headaches, chest pain, or shortness of breath. At this time, after getting transfusion, feels better. No abdominal discomfort. No extremity complaints. PHYSICAL EXAMINATION: GENERAL: She is afebrile. VITAL SIGNS: Stable. HEART: Regular. LUNGS: Clear. Decreased breath sounds at bases. ADMIT: 12/08/2016 RM/LOC: 316 [facility] MR#: [id number] [address] [facility] [address] [place] [address] LU[address] [facility] [place] [address] Consultation Report SEX: F AGE: 66 : 1950 ABDOMEN: Soft, nondistended, and nontender. EXTREMITIES: No peripheral edema. LABORATORY WORKUP: After transfusion was 6.6 to 8.6. ASSESSMENT AND PLAN: Patient is 66-year-old with anemia of unknown origin, reportedly normal lower scope about 3 years ago. She has not had any clinical evidence of GI blood loss. We will let her eat and make her n.p.o. after midnight and put her on for upper endoscopy to rule out upper GI blood loss source for her, recent issues with anemia. Merlin Hunt MD/ nasir JOB #: [id number] CC: Yasir Rocha, Attending Physician Yasir Rocha, Family Physician Corrected: 12/10/2016 0511 njv
--- NOTE | 2016-12-25 13:26 | OR ---
ADMIT: 12/08/2016 RM/LOC: 403 [facility] MR#: [id number] 26[address] [facility] [address] [place], [place] [address] [address] [place] [address] Operative/Delivery Room Report SEX: F AGE: 66 : 1950 SURGERY DATE: 12/10/2016 SURGEON: Jean-Paul Varner MD PREOPERATIVE DIAGNOSIS: Anemia. POSTOPERATIVE DIAGNOSIS: Evidence of some gastritis, small hiatal hernia. She does have a little distal esophageal/gastroesophageal junction ulceration, nothing actively bleeding. No visible vessel. PROCEDURE: EGD with biopsies of the gastric antrum, rule out H pylori. ANESTHESIA: MAC anesthesia. ESTIMATED BLOOD LOSS: Less than 5 mL. INDICATION FOR PROCEDURE: Please see H and P. PROCEDURE IN DETAIL: After the risks, benefits, possible complications, and the alternatives have been explained, and informed consent had been obtained, the patient was taken back to the operating room, underwent sedation. The flexible EGD scope was introduced and slowly maneuvered down the esophagus. You can see the distal esophagus in picture #4 and I washed this area off as good as I could, there was little bit of kind of old blood there, but nothing actively bleeding. No visible vessel there. Little ulceration. Maneuvered through here, through the stomach, down the second portion of the duodenum seen in the second picture. The duodenum and duodenal bulb appeared okay. There was no active blood or new or old blood within the stomach. I did do some antral biopsies. Retroflexion of the scope, there was a little bit of food debris, hiatal hernia seen in picture #3. After biopsying the antrum, I came back up, like I said washed off this distal esophagus and inspected without any signs of active bleeding or blood. The remainder of the upper esophagus looked okay as the scope was removed and the procedure terminated. Tolerated it well, was taken to recovery room in stable and satisfactory condition. Jean-Paul Varner MD/ nasir JOB #: [id number] CC: Yasir Rocha, Attending Physician Yasir Rocha, Family Physician
--- NOTE | 2017-01-09 08:30 | DS ---
ADMIT: 12/08/2016 RM/LOC: 403 [facility] MR#: [id number] [address] [place], [place] [address] LUIS FISHER [address] [place] [address] Discharge Summary SEX: F AGE: 66 : 1950 ADMISSION DATE: 12/08/2016 DISCHARGE DATE: 12/12/2016 CONSULTATIONS: 1. Merlin Hunt MD, General Surgery. 2. Roberth Busby MD, Cardiology. FINAL DIAGNOSES: 1. GI (gastrointestinal) bleeding secondary to gastritis and esophageal ulcers. 2. COPD (chronic obstructive pulmonary disease) exacerbation improved. 3. Severe aortic stenosis. 4. Equivocal troponin elevation. 5. Coronary artery disease. 6. Hypotension resolved. REASON FOR ADMISSION: Please see H and P dictated by Dr. Godoy, however, admitted with rectal bleeding and shortness of breath. HOSPITAL COURSE: Admitted to the service of [facility] under the care of Dr. Dayday Godoy. Received appropriate goal-directed therapy for her admission diagnoses. Her care is transitioned to myself on December 10. She improves nicely throughout her hospitalization. She does have stabilization of her laboratories. She is educated to no longer be drinking alcohol. She is initiated on treatment for COPD exacerbation and improves nicely as well. She ultimately discharges to home to finish out her antibiotics as well as her prednisone. She will avoid alcohol, and she will resume her current medications. She will follow up with me in my office in approximately 2 weeks with follow-up laboratories as well. Thirty minutes spent on discharge activities of this patient. Yasir Rocha MD/ deanna JOB #: [id number] CC: Yasir Rocha MD, Attending Physician Yasir Rocha MD, Family Physician
== END 2016-12-12 12:00 | disposition home or self-care (01) | DRG 377 ==
LOC: ER 19:04 → 4PCU 21:00 → 3ICU 21:00 → 4PCU 12-10 10:51
PROVIDERS: ADMIT Internal Medicine
PROC: 30233N1 Transfusion of Nonautologous Red Blood Cells into Peripheral Vein, Percutaneous Approach (ICD-10-PCS; 2016-12-08)
PROC: 0DB68ZX Excision of Stomach, Via Natural or Artificial Opening Endoscopic, Diagnostic (ICD-10-PCS; principal; 2016-12-10)
DX: K25.4 Chronic or unspecified gastric ulcer with hemorrhage (principal); J96.91 Respiratory failure, unspecified with hypoxia; D62 Acute posthemorrhagic anemia; J44.1 Chronic obstructive pulmonary disease with (acute) exacerbation; I24.8 Other forms of acute ischemic heart disease; E87.1 Hypo-osmolality and hyponatremia; R73.9 Hyperglycemia, unspecified; K29.60 Other gastritis without bleeding; K44.9 Diaphragmatic hernia without obstruction or gangrene; I48.0 Paroxysmal atrial fibrillation; I10 Essential (primary) hypertension; I25.10 Atherosclerotic heart disease of native coronary artery without angina pectoris; I65.21 Occlusion and stenosis of right carotid artery; E78.5 Hyperlipidemia, unspecified; K21.9 Gastro-esophageal reflux disease without esophagitis; F17.210 Nicotine dependence, cigarettes, uncomplicated; Z98.890 Other specified postprocedural states; Z79.82 Long term (current) use of aspirin; Z79.02 Long term (current) use of antithrombotics/antiplatelets; Z82.49 Family history of ischemic heart disease and other diseases of the circulatory system; Z95.5 Presence of coronary angioplasty implant and graft; Z66 Do not resuscitate

== ENCOUNTER → 2017-01-15 | Outpatient (CLI) | payer MEDICARE ==
[~2017-01-15] MED LIST: ADVAIR DIS1 PUFF/DO1 IH; ASA CHILDREN'S81 MG PO; CARAFATE DPS1 GM PO; CRESTOR10 MG PO; DELTASONE DPS1 MG PO; FEOSOL-DPS325 MG PO; LASIX DPS40 MG PO; LOPRESSOR DPS12.5 MG PO; PLAVIX75 MG PO; PROAIR RESPICL90 MCG IH; PROTONIX40 MG PO; SPIRIVA18 MCG IH; TYLENOL DPS325 MG PO; VIBRAMYCIN-DPS100 M2 PO
== END | disposition home or self-care (01) ==
LOC: RAD.S 09:06
DX: Z12.31 Encounter for screening mammogram for malignant neoplasm of breast (principal)